=== PATIENT | female | born 2000 | race African-American/Black ===

== ENCOUNTER 2023-03-03 04:59 | Day surgery (SDC) | payer OTHER ==
[2023-03-02 18:04] VITALS: BMI 23.0
[2023-03-03] MEDS ORDERED: LIDOCAINE HCL/PF 2% SDV 5ML VIAL ONE (12:46)
[2023-03-03] MEDS ORDERED: PROPOFOL 20 ML ONE (12:46)
[2023-03-03] MEDS ORDERED: MIDAZOLAM HCL 2 MG/2 ML SINGLE DOSE VIAL ONE (12:46)
[2023-03-03] MEDS ORDERED: ONDANSETRON 4 MG/2 ML VIAL IVPUSH PRN ×2 (12:57→14:05)
[2023-03-03] MEDS ORDERED: oxyCODONE HCL 5 MG TABLET PO PRN ×2 (12:57→14:05)
[2023-03-03] MEDS ORDERED: FERRIC SUBSULFATE 500 ML BOTTLE TP ONE (12:57)
[2023-03-03] MEDS ORDERED: IODINE/POTASSIUM IODIDE 5%/10% 14 ML BOTTLE NR ONE (12:58)
[2023-03-03] MEDS ORDERED: LACTATED RINGERS SOLUTION 1,000 ML IV SCH (13:00)
[2023-03-03] MEDS ORDERED: IBUPROFEN 600 MG TABLET (FP) PO PRN (14:05)
[2023-03-03] MEDS ORDERED: IBUPROFEN 800 MG/8 ML IJ IVPB PRN (14:05)
[2023-03-03] MEDS ORDERED: ELECTROLYTE-148 SOLN 1,000 ML IV SCH (14:15)
[2023-03-03 16:44] VITALS: RESP 18
[2023-03-03 16:47] VITALS: BP 118/66; PULSE 65; TEMP 97.9
== END 2023-03-03 16:04 | disposition home or self-care (01) ==
LOC: JASU-SURG 04:59
PROVIDERS: ATTEND Obstetrics & Gynecology
PROC: 0UBC7ZX Excision of Cervix, Via Natural or Artificial Opening, Diagnostic (ICD-10-PCS; principal; 2023-03-03 14:00)
DX: R87.613 High grade squamous intraepithelial lesion on cytologic smear of cervix (HGSIL) (principal)
CPT/HCPCS: 81025; 88305-TC; 88307-TC; 88341-TC; 88342-TC; 94760

== ENCOUNTER 2024-04-02 10:40 | Emergency (ER) | payer OTHER ==
[2024-04-02 11:26] VITALS: TEMP 97.8; BMI 26.9
[2024-04-02] MEDS ORDERED: MECLIZINE HCL 25 MG TABLET (FP) ONE (11:42)
[2024-04-02] MEDS: MECLIZINE HCL 25 MG TABLET (FP) PO ONE (11:55)
[2024-04-02 11:56] VITALS: PULSE 108
[2024-04-02 13:58] LABS: HIV INTERPRETATION NEGATIVE (NEGATIVE)
[2024-04-02 14:22] VITALS: BP 108/60; RESP 16
== END 2024-04-02 14:43 | disposition home or self-care (01) ==
LOC: JER 10:40
DX: O26.893 Other specified pregnancy related conditions, third trimester (principal); R42 Dizziness and giddiness; O21.9 Vomiting of pregnancy, unspecified; Z3A.29 29 weeks gestation of pregnancy
CPT/HCPCS: 36415; 82962; 86803; 87389; 93005; 93010; 99284-25

== ENCOUNTER 2024-06-13 05:44 | Inpatient (IN) | payer OTHER ==
[2024-06-13] MEDS: ELECTROLYTE-148 SOLN 1,000 ML IV SCH ×2 (07:00→18:06)
[2024-06-13] MEDS ORDERED: AMPICILLIN SODIUM 2 GM VIAL ONE (07:16)
[2024-06-13] MEDS: AMPICILLIN - 2 GM in SODIUM CHLORIDE 100 ML IVPB ONE (07:20)
[2024-06-13 07:29] VITALS: BMI 24.7
[2024-06-13 07:50] LABS: BASO % 0.5 % (0-2.0); EOS % 0.6 % (0-4.5); HEMATOCRIT 39.5 % (32.4-45.2); HEMOGLOBIN 13.3 GM/dL (10.7-15.3); LYMPH % 8.7 % (8-40); MCH 30.5 pg (25.7-33.7); MCHC 33.7 g/dl (32.0-36.0); MEAN CELL VOLUME 90.7 fl (80-96); MEAN PLT VOLUME 9.3 fl (7.5-11.1); MONO % 5.4 % (3.8-10.2); NEUT % 84.8 % (42.8-82.8); PLATELET COUNT 197 10^3/uL (134-434); RBC 4.36 M/mm3 (3.60-5.2); RDW 14.5 % (11.6-15.6); WHITE BLOOD COUNT 12.3 K/mm3 (4.0-10.0)
[2024-06-13 08:10] LABS: POTASSIUM 3.9 mmol/L (3.5-5.1)
[2024-06-13 08:11] LABS: CALCIUM 9.3 mg/dL (8.5-10.1)
[2024-06-13 08:12] LABS: BLOOD UREA NITROGEN 9.2 mg/dL (7-18)
[2024-06-13 08:15] LABS: CREATININE 0.8 mg/dL (0.55-1.3)
[2024-06-13 08:16] LABS: INR 0.93 (0.83-1.09); PROTHROMBIN TIME (PATIENT) 10.5 SEC (9.7-13.0)
[2024-06-13 08:19] LABS: ACTIVATED PTT 28.4 SECONDS (25.2-36.5)
[2024-06-13] MEDS ORDERED: FENTANYL/BUPIVACAINE/NS/PF - PCEA - 50 ML DISP.SYRIN EP ONE ×2 (08:29→12:39)
[2024-06-13] MEDS: FENTANYL/BUPIVACAINE/NS/PF - PCEA - 50 ML DISP.SYRIN EP SCH (09:00)
[2024-06-13] MEDS ORDERED: NALOXONE HCL 0.4 MG/ML VIAL IVPUSH PRN (09:05)
[2024-06-13] MEDS ORDERED: OXYTOCIN 30 UNITS in 0.9% NS 30 UNIT/500 ML INFUS.BAG IVPB ONE (10:28)
[2024-06-13] MEDS ORDERED: AMPICILLIN SODIUM 1 GM VIAL ONE (10:28)
[2024-06-13] MEDS: AMPICILLIN - 1 GM in SODIUM CHLORIDE 100 ML IVPB SCH (10:38)
[2024-06-13] MEDS: OXYTOCIN 30 UNITS in 0.9% NS 30 UNIT/500 ML INFUS.BAG IVPB SCH (10:40)
[2024-06-13] MEDS ORDERED: OXYTOCIN 20 UNITS in 0.9% NS 20 UNIT/1,000 ML INFUS.BAG IV ONE (13:49)
[2024-06-13] MEDS: OXYTOCIN 20 UNITS in 0.9% NS 20 UNIT/1,000 ML INFUS.BAG IV SCH (14:30)
[2024-06-13] MEDS ORDERED: BISACODYL 10 MG SUPP.RECT RC PRN (14:48)
[2024-06-13 15:09] LABS: CORD BASE EXCESS -6.9 mmol/L (0-2); CORD HCO3 22.2 mmHg (20-29); CORD PCO2 58.2 mmHg (30-78); CORD pH 7.199 (7.14-7.44)
[2024-06-13 15:09] LABS: CORD BASE EXCESS -5.9 mmol/L (0-2); CORD HCO3 20.5 mmHg (20-29); CORD PCO2 43.6 mmHg (30-78); CORD pH 7.291 (7.14-7.44)
[2024-06-13] MEDS: METHYLERGONOVINE MALEATE 0.2 MG/1 ML AMP IM PRN (15:15)
[2024-06-13] MEDS: BENZOCAINE 20% 57 GM BOTTLE TP PRN (17:41)
[2024-06-13] MEDS: ACETAMINOPHEN 325 MG TABLET (FP) PO PRN (17:41)
[2024-06-14] MEDS: IBUPROFEN 600 MG TABLET (FP) PO PRN (03:26)
[2024-06-14 08:18] LABS: BASO % 0.7 % (0-2.0); EOS % 1.7 % (0-4.5); HEMOGLOBIN 10.7 GM/dL (10.7-15.3); LYMPH % 19.9 % (8-40); MCH 30.9 pg (25.7-33.7); MCHC 33.6 g/dl (32.0-36.0); MEAN CELL VOLUME 91.8 fl (80-96); MEAN PLT VOLUME 9.6 fl (7.5-11.1); MONO % 8.1 % (3.8-10.2); NEUT % 69.6 % (42.8-82.8); PLATELET COUNT 155 10^3/uL (134-434); RBC 3.48 M/mm3 (3.60-5.2); RDW 14.2 % (11.6-15.6); WHITE BLOOD COUNT 12.1 K/mm3 (4.0-10.0)
[2024-06-14 10:52] VITALS: RESP 18
[2024-06-14] MEDS: BENZOCAINE 28 GM HEMORRHOIDAL OINTMENT TP PRN (21:09)
[2024-06-14] MEDS: WITCH HAZEL 50% (TUCKS) 40 PAD/JAR PAD TP PRN (21:09)
[2024-06-14] MEDS: SENNOSIDES/DOCUSATE COMBO (SENNA PLUS) TABLET (UD) PO PRN (21:10)
[2024-06-15 10:33] VITALS: BP 115/74; PULSE 71; TEMP 98.1
== END 2024-06-15 15:20 | disposition home or self-care (01) | DRG 807 ==
LOC: JDEL 05:44 → JLDR 06:30 → J3W 16:50
PROVIDERS: ADMIT Obstetrics & Gynecology; ATTEND Obstetrics & Gynecology
PROC: 10E0XZZ Delivery of Products of Conception, External Approach (ICD-10-PCS; principal; 2024-06-13)
PROC: 0HQ9XZZ Repair Perineum Skin, External Approach (ICD-10-PCS; 2024-06-13)
PROC: 0W8NXZZ Division of Female Perineum, External Approach (ICD-10-PCS; 2024-06-13)
DX: O70.0 First degree perineal laceration during delivery (principal); O99.820 Streptococcus B carrier state complicating pregnancy; Z3A.39 39 weeks gestation of pregnancy; Z37.0 Single live birth
CPT/HCPCS: 36415; 36600; 59409; 80048; 82803; 85025; 85610; 85730; 86780; 86850; 86900; 86901